=== PATIENT | male | born 1990 | race Caucasian/White ===

== ENCOUNTER 2016-11-28 11:23 | Emergency (ER) | payer SELFPAY ==
[2016-11-28 11:48] VITALS: BP 127/82
--- NOTE | 2016-11-28 12:32 | Emergency Department Report ---
HPI - General Chief Complaint: Back Pain/Injury Time Seen by Provider: 11/28/16 12:29 - HPI HPI: 26-year-old -[place] male boy in by EMS today. Patient was seen here 4 days ago for forklift accident that he had fallen backwards. Patient returns today complaint of back pain and ankle pain and blurred vision. Patient reports that he left on the without his prescriptions stated that the doctor said they were coming back but he did not wait to get his prescriptions. Patient has no other complaints. ED Past Medical Hx - Past Medical History Previous Medical History?: Yes Additional medical history: Back pain, ankle pain - Surgical History Past Surgical History?: No - Social History Smoking Status: Never Smoker Substance Use Type: Non Opiate Pain - Medications Home Medications: Home Medications Medication Instructions Recorded Confirmed Last Taken Type Baclofen 20 mg PO BID #20 tablet 11/25/16 Unknown Rx Diclofenac Sodium 75 mg PO BID #20 tablet. 11/28/16 Unknown Rx methOCARBAMOL [Robaxin TAB] 500 mg PO BID #20 tablet 11/28/16 Unknown Rx ED Review of Systems ROS: Stated complaint: BACK PAIN/ANKLE PAIN/BLURRED VISION Other details as noted in HPI Physical Exam - Physical Exam Vital Signs: Vital Signs 11/28/16 11:44 Temperature 98.1 F Pulse Rate 74 Respiratory 16 Rate Blood Pressure 127/82 O2 Sat by Pulse 100 Oximetry Physical Exam: GENERAL: Alert and oriented x3, no apparent distress, Normal Gait, atraumatic. HEAD: Head is normocephalic and a-traumatic. Musculoskeletal: Right side. Spinal tenderness no CVA tenderness no vertebral tenderness or range of motion EXTREMITIES/MUSCULOSKELETAL: No cyanosis, clubbing, rash, lesions or edema. Full ROM bilaterally. UE/LE Pulses 2+ bilaterally. LE and UE 5+ strength bilaterally, mild tenderness to the right foot malleolus NEUROLOGIC: No focal Deficit, Cranial nerves II through XII are grossly intact. No loss of sensation, No facial droop, Negative rhomberg. PSYCHIATRIC: Mood is congruent with affect, denies suicidal or homicidal ideations. SKIN: Warm and dry, No lesions, No ulceration or induration present ED Course Vital Signs 11/28/16 11:44 Temperature 98.1 F Pulse Rate 74 Respiratory 16 Rate Blood Pressure 127/82 O2 Sat by Pulse 100 Oximetry - Reevaluation(s) Reevaluation #1: 11/28/16 13:20 Patient reports that he feels much better after having a Toradol injection. ED Medical Decision Making - Radiology Data Radiology results: report reviewed, image reviewed RIGHT ANKLE: The bones are well mineralized with normal bony contours and joint alignment. No fractures or destructive changes are noted and the adjacent soft tissues are normal. IMPRESSION: Normal study. Transcribed By: MRP Dictated By: JU BOLANOS MD Electronically Authenticated By: JU BOLANOS MD Signed Date/Time: 11/28/16 1347 - Medical Decision Making History of an evaluated by this provider fast track Toradol injection ordered and given to the patient. Critical care attestation.: If time is entered above; I have spent that time in minutes in the direct care of this critically ill patient, excluding procedure time. ED Disposition Clinical Impression: Fall, Right ankle injury Back contusion Qualifiers: Encounter type: initial encounter Laterality: right Qualified Code(s): S20.221A - Contusion of right back wall of thorax, initial encounter Disposition: DISCHARGED TO HOME OR SELFCARE Is pt being admited?: No Does the pt Need Aspirin: No Condition: Stable Instructions: Low Back Strain (ED), Ankle Sprain (ED) Additional Instructions: Medication as prescribed follow-up to primary care provider if pain is worse or no improvement. Prescriptions: Diclofenac Sodium 75 mg PO BID #20 tablet.dr pittmanOCARBAMOL [Robaxin TAB] 500 mg PO BID #20 tablet Referrals: RAQUEL PRINCE MD [Staff Physician] - 3-5 Days Forms: Work/School Release Form(ED)
[2016-11-28] MEDS ORDERED: TORADOL IM ONE (12:45)
--- NOTE | 2016-11-28 14:00 | XRay Report ---
RIGHT ANKLE: The bones are well mineralized with normal bony contours and joint alignment. No fractures or destructive changes are noted and the adjacent soft tissues are normal. IMPRESSION: Normal study.
== END 2016-11-28 14:29 | disposition home or self-care (01) ==
LOC: ED 11:23
DX: S20.221A Contusion of right back wall of thorax, initial encounter (principal); S99.911A Unspecified injury of right ankle, initial encounter; W19.XXXA Unspecified fall, initial encounter; Y93.9 Activity, unspecified; Y99.9 Unspecified external cause status; Y92.89 Other specified places as the place of occurrence of the external cause
CPT/HCPCS: 73600; 96372; 99284; J1885